=== PATIENT | female | born 1985 | race Caucasian/White ===

== ENCOUNTER 2019-07-05 17:59 | Emergency (ER) | payer MEDICAID ==
[~2019-07-05] VITALS: Ht 154.9 cm; Wt 45.4 kg
[2019-07-05 22:38] LABS: Basophils # (auto) 0 uL; Basophils % (auto) 0.8 % (0.0-2.0); Eosinophils # (auto) 0.1 uL; Eosinophils % (auto) 2.2 % (0.0-7.0); Hematocrit 40.3 % (36.0-46.0); Hemoglobin 13.8 g/dL (12.2-16.2); Lymphocytes # (auto) 1.9 uL; Lymphocytes % (auto) 34.5 % (10.0-50.0); Mean Corpuscular Hemoglobin 31.6 pg (28.0-32.0); Mean Corpuscular Hgb Conc. 34.1 g/dL (32.0-36.0); Mean Corpuscular Volume 92.4 fL (80.0-100.0); Monocytes # (auto) 0.3 uL; Monocytes % (auto) 4.7 % (0.0-12.0); Neutrophils # (auto) 3.1 uL; Neutrophils % (auto) 57.8 % (37.0-80.0); Nucleated Red Blood Cells % 0.2 %; Platelet Count (auto) 274 10^3/uL (140-450); Red Blood Cells 4.36 10^6/uL (4.0-5.20); Red Cell Distribution Width 12.8 % (11.8-14.3); White Blood Cell 5.4 10^3/uL (4.4-10.8)
[2019-07-05 23:03] LABS: Albumin 3.8 g/dL (3.4-5.0); BUN/Creatinine Ratio 9.1; Calcium 8.7 mg/dL (8.5-10.1); Potassium 3.1 mmol/L (3.5-5.1)
[2019-07-05 23:05] LABS: Bilirubin, Total 0.7 mg/dL (0.2-1.0)
[2019-07-06 01:42] VITALS: BP 127/74
== END 2019-07-06 01:43 | disposition home or self-care (01) ==
LOC: EDBD 17:59 → ER 17:59
DX: T78.40XA Allergy, unspecified, initial encounter (principal); F41.9 Anxiety disorder, unspecified; K21.9 Gastro-esophageal reflux disease without esophagitis; F12.10 Cannabis abuse, uncomplicated; R20.0 Anesthesia of skin; X58.XXXA Exposure to other specified factors, initial encounter
CPT/HCPCS: 36415; 70450; 80053; 84702; 85025